=== PATIENT | female | born 1935 | race Caucasian/White ===

== ENCOUNTER → 2016-06-04 | Outpatient (CLI) | payer MEDICARE, OTHER | LOC: GMAB 12:40 | PROVIDERS: ATTEND Family Medicine | DX: I10 Essential (primary) hypertension (principal) ==

== ENCOUNTER → 2016-10-05 | Outpatient (CLI) | payer MEDICARE, OTHER ==
--- NOTE | 2016-10-05 15:49 | MAM ---
History: Well woman exam. Date of exam: 10/05/2016 Services provided: Bilateral full field digital screening mammography. CAD, the images were reviewed with R2 computer aided detection. FINDINGS: Glandular tissue is scattered glandular contour. Comparison with 2012 study. No dominant mass, architectural distortion or clustered microcalcification. IMPRESSION: Benign exam Recommendation: Routine annual mammography BIRAD CATEGORY: 2 BENIGN Electronically signed by: Yashira Cardenas MD 10/05/2016 3:48 PM CDT
== END | disposition home or self-care (01) ==
LOC: MAMMO 13:54
PROVIDERS: ATTEND Family Medicine
DX: Z12.31 Encounter for screening mammogram for malignant neoplasm of breast (principal)

== ENCOUNTER → 2017-03-04 | Outpatient (CLI) | payer MEDICARE, OTHER | END | disposition home or self-care (01) | LOC: GMAB 17:12 | PROVIDERS: ATTEND Family Medicine | DX: E53.8 Deficiency of other specified B group vitamins (principal); R53.82 Chronic fatigue, unspecified ==

== ENCOUNTER → 2017-06-16 | Outpatient (CLI) | payer MEDICARE, OTHER | LOC: GMAB 11:06 | PROVIDERS: ATTEND Family Medicine | DX: I10 Essential (primary) hypertension (principal); R30.0 Dysuria; M62.838 Other muscle spasm ==

== ENCOUNTER → 2018-02-25 | Outpatient (CLI) | payer MEDICARE, OTHER ==
--- NOTE | 2018-02-25 15:26 | US ---
US THYROID CLINICAL STATEMENT: E04.9. COMPARISON: None FINDINGS: Size right thyroid lobe: 3.7 x 1.4 x 1.7 cm Size left thyroid lobe: 3.4 x 1.2 x 1.1 cm Size isthmus: 0.2 cm Estimated total number of nodules greater than or equal to 1 cm: 2 Nodule 1: Size: 1.1 x 0.8 x 0.7 cm Location: Right Lower Composition: solid or almost completely solid: 2 points Echogenicity: isoechoic: 1 point Shape: wider than tall: 0 points Margins: ill-defined: 0 points Echogenic foci: none: 0 points ACR Total Points: 3; ACR TI-RADS risk category: TR3 - mildly suspicious nodule. Nodule 2: Size: 1.0 x 0.7 x 0.4 cm Location: Right Lower Composition: solid or almost completely solid: 2 points Echogenicity: hypoechoic: 2 points Shape: wider than tall: 0 points Margins: smooth: 0 points Echogenic foci: none: 0 points ACR Total Points: 4; ACR TI-RADS risk category: TR4 - moderately suspicious nodule. Nodule 3: Size: 1 x 0.5 x 0.3 cm Location: Left Mid Composition: solid or almost completely solid: 2 points Echogenicity: hypoechoic: 2 points Shape: wider than tall: 0 points Margins: smooth: 0 points Echogenic foci: none: 0 points ACR Total Points: 4; ACR TI-RADS risk category: TR4 - moderately suspicious nodule. The soft tissue around the thyroid gland shows no evidence of distinct solid or cystic mass. No large calcifications or parenchymal edema. Overlying skin is unremarkable. No abnormal vascularity. IMPRESSION: 1. Nodule 1: ACR TI-RADS 2017 Category 3. Recommend: No further follow-up. 2. Nodule 2: ACR TI-RADS 2017 Category 4. Recommend: Follow-up ultrasound in 1 year.. Please see ACR TI-RADS 2017 recommendations below.* 3. Nodule 3: ACR TI-RADS 2017 Category 4. Recommend: Follow-up ultrasound in 1 year. 4. Soft tissue around the thyroid gland is unremarkable. *ACR TI-RADS 2017 Recommendations: TR1: No FNA or follow up TR2: No FNA or follow up TR3: FNA if >/= 2.5 cm, follow up if 1.5 - 2.4 cm in 1, 3, and 5 years TR4: FNA if >/= 1.5 cm, follow up if 1.0 - 1.4 cm in 1, 2, 3, and 5 years TR5: FNA if >/= 1.0 cm, follow up if 0.5 - 0.9 cm every year for 5 years ACR TI-RADS recommends that no more than two nodules with the highest ACR TI-RADS total point should be biopsied and no more than four nodules should be followed. Electronically signed by: Avni Vargas MD 02/25/2018 3:25 PM CDT
== END ==
LOC: US 09:30
PROVIDERS: ATTEND Family Medicine
DX: E04.9 Nontoxic goiter, unspecified (principal)

== ENCOUNTER → 2018-06-27 | Outpatient (CLI) | payer MEDICARE, OTHER | LOC: GMAE 11:06 | PROVIDERS: ATTEND Family Medicine | DX: I10 Essential (primary) hypertension (principal) ==

== ENCOUNTER → 2019-01-09 | Outpatient (CLI) | payer MEDICARE, OTHER ==
--- NOTE | 2019-01-09 16:11 | MRI ---
EXAM DESCRIPTION: Lumbar Spine w/o Contrast CLINICAL HISTORY: 83 years Female, SPONDYLOSIS COMPARISON: Lumbar spine radiographs 05/12/2016. CT lumbar spine 02/11/2016. MRI lumbar spine 07/12/2015. TECHNIQUE: Multisequence, multiplanar images of the lumbar spine without intravenous contrast. FINDINGS: For the purpose of this report, the designated L5-S1 disc space will be referred to as axial T2 image 3. Vertebrae: Susceptibility artifact secondary to extensive posterior fusion from L3 and above into the lower thoracic spine. Within these limitations, no acute fracture acute compression deformity. Acute Modic type I degenerative endplate change at anterior L4-5. Modic type II degenerative endplate change at L3-L4 and L5-S1. Mild lumbar lordosis. Trace anterolisthesis of L4 on L5 secondary to facet hypertrophy. Spinal cord: Termination of the conus medullaris at T12-L1. Nerve roots of the cauda equina appear clumped along the posterior aspect of the thecal sac from the level of L2 vertebral body and below. Discs, facets, spinal canal, and neural foramina: Interbody fusion at T12-L1. Severe L1-L2 through L3-4 disc space narrowing. Disc desiccation of the lumbar spine. L1-L2: Mild endplate osteophytic ridging eccentric towards the right lateral recess. Severe facet arthropathy. Spinal canal is patent. Mild bilateral neural foraminal stenosis. L2-3: Mild endplate osteophytic ridging. Severe facet arthropathy. Mild spinal canal stenosis. Mild left but no right neural foraminal stenosis. L3-4: Mild disc bulge and endplate osteophytic ridging. Severe right greater than left facet arthropathy. Severe right greater than left facet arthropathy. Moderate spinal canal stenosis with AP narrowing to 7 mm. Mild bilateral neural foraminal stenosis. L4-5: Unroofing the posterior disc space and superimposed moderate disc bulge. Severe facet arthropathy. Severe right lateral recess stenosis which likely affect the transiting right L5 nerve root. Moderate spinal canal stenosis with AP narrowing to 7 mm. Severe right and moderate left neural foraminal stenosis. L5-S1: Small disc bulge and moderate endplate osteophytic ridging. Severe right greater than left facet arthropathy. Severe right lateral recess stenosis likely affecting the transiting right S1 nerve root. Moderate spinal canal stenosis with AP narrowing to 6 mm. Severe left greater than right neural foraminal stenosis. Paraspinous soft tissues: Paravertebral soft tissues unremarkable. IMPRESSION: 1. No acute fracture or acute compression deformity. 2. Extensive posterior fusion spanning L3 and above lower thoracic spine. 3. Grade 1 and listhesis of L4 relative L5 secondary to facet hypertrophy with acute Modic type I degenerative change. 4. Lumbar spondylosis with up to moderate spinal canal stenosis as above. 5. L4-5 severe right lateral recess stenosis which likely affect the transiting right L5 nerve root. 6. L5-S1 severe right lateral recess stenosis affecting the transiting right S1 nerve root. 7. Multilevel neural foraminal compromise, greatest and severe at right L4, left greater the right L5. 8. There is some the cauda equina at the level L2 and below the dependent along the posterior thecal sac. 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 This is similarly seen from 07/12/2015 and therefore chronic in nature. Electronically signed by: Johnny Polo MD 01/09/2019 4:10 PM CDT
== END ==
LOC: MRI 13:44
PROVIDERS: ATTEND Anesthesiology Pain Medicine
DX: M47.816 Spondylosis without myelopathy or radiculopathy, lumbar region (principal); M47.814 Spondylosis without myelopathy or radiculopathy, thoracic region; M48.061 Spinal stenosis, lumbar region without neurogenic claudication; M43.16 Spondylolisthesis, lumbar region; Z98.1 Arthrodesis status

== ENCOUNTER → 2019-01-13 | Outpatient (CLI) | payer MEDICARE, OTHER ==
--- NOTE | 2019-01-16 08:46 | MRI ---
EXAM DESCRIPTION: Thoracic Spine w/o Contrast CLINICAL HISTORY: SPONDYLOSIS. No thoracic spine hardware. Pain. COMPARISON: CT thoracic spine 02/11/2016. TECHNIQUE: Multisequence multiplanar MRI of thoracic spine was obtained without intravenous contrast. FINDINGS: Partially visualized posterior spinal fusion starting at T10 level extending to at least the L3 level). Susceptibility artifact from the hardware partially limits regional soft tissue evaluation. Interbody fusion at T12-L1 is noted. The alignment of the thoracic spine is intact without significant listhesis. Moderate multilevel thoracic spine degenerative changes with disc desiccation, associated intervertebral disc height loss is more pronounced within the mid thoracic spine (T6 levels). Bulky bridging osteophyte can be seen with changes of DISH (diffuse idiopathic skeletal hyperostosis). Small central disc bulge at T4-T5 causes mild effacement of the ventral cord without central canal stenosis. At T9-T10 posterior disc bulge (2-3 mm) with ligamentum flavum hypertrophy results in mild effacement of the cord and mild central canal stenosis. No significant central canal stenosis or neural foraminal narrowing at any thoracic level. The vertebral body heights are maintained without displaced fracture or dislocation. No suspicious osseous lesion. Normal caliber and signal intensity of the thoracic cord. No focal spinal cord lesion or edema. The soft tissues are unremarkable. IMPRESSION: 1. Lower thoracic/lumbar spinal hardware fixation (extending from the T10 levels inferiorly). 2. Moderate multilevel thoracic spine degenerative changes with DISH without high-grade central canal stenosis or neuroforaminal narrowing, similar compared to prior examination. 3. Mild central canal stenosis at T9-T10. 4. Normal caliber and signal intensity of the thoracic cord. Electronically signed by: Zain Mckoy DO 01/16/2019 8:44 AM CDT
== END ==
LOC: MRI 13:00
PROVIDERS: ATTEND Anesthesiology Pain Medicine
DX: M47.816 Spondylosis without myelopathy or radiculopathy, lumbar region (principal); M48.04 Spinal stenosis, thoracic region; M47.814 Spondylosis without myelopathy or radiculopathy, thoracic region; Z98.1 Arthrodesis status

== ENCOUNTER → 2019-03-20 | Outpatient (CLI) | payer MEDICARE, OTHER | LOC: GMAE 16:43 | PROVIDERS: ATTEND Family Medicine | DX: E53.8 Deficiency of other specified B group vitamins (principal); R53.83 Other fatigue; E83.51 Hypocalcemia; R35.0 Frequency of micturition ==

== ENCOUNTER → 2020-02-12 | Outpatient (CLI) | payer MEDICARE, OTHER ==
--- NOTE | 2020-02-12 11:46 | RAD ---
EXAM DESCRIPTION: Hand,Left 3 Views CLINICAL HISTORY: PAIN IN RIGHT AND LEFT HAND COMPARISON: None. TECHNIQUE: 3 views left FINDINGS: Diffuse osteopenia is observed. Distal interphalangeal joint arthritis is noted. Mild degenerative changes are observed in the metacarpal carpal articulation of the first digit. Mild metacarpal carpal arthritis is observed in the remainder of the digits. Calcification of the triangle fibrocartilage is observed. No fracturing is detected. IMPRESSION: Degenerative changes and osteopenia are observed. No fracturing is detected. Electronically signed by: Lucas Henao MD 02/12/2020 11:45 AM CDT
--- NOTE | 2020-02-12 11:49 | RAD ---
EXAM DESCRIPTION: Hand,Right 3 Views CLINICAL HISTORY: PAIN IN LEFT AND RIGHT HAND COMPARISON: 01 January 2012 TECHNIQUE: 3 views right FINDINGS: Distal interphalangeal joint arthritis is observed throughout the hand. The exam also reveals degenerative changes in the metatarsal phalangeal joints throughout the hand most pronounced in the first and second digits. Degenerative changes are also observed in the metacarpal carpal articulation of the first digit. Calcification of the triangular fibrocartilage is noted. No fracturing is detected. IMPRESSION: Degenerative changes are observed. No fracturing is detected. Electronically signed by: Lucas Henao MD 02/12/2020 11:47 AM CDT
== END ==
LOC: RAD 10:06
PROVIDERS: ATTEND Orthopaedic Surgery
DX: M19.041 Primary osteoarthritis, right hand (principal); M19.042 Primary osteoarthritis, left hand; M85.842 Other specified disorders of bone density and structure, left hand

== ENCOUNTER 2020-03-19 05:30 | Day surgery (SDC) | payer MEDICARE, OTHER ==
[2020-03-19] MEDS ORDERED: PROPOFOL 200 MG/20 ML VIAL IV ONE (05:31)
[2020-03-19] MEDS ORDERED: METOCLOPRAMIDE HCL INJ 10 MG/2 ML VIAL IV ONE (05:31)
[2020-03-19] MEDS ORDERED: DEXAMETHASONE INJ 10 MG/ML VIAL IV ONE (05:31)
[2020-03-19] MEDS ORDERED: LIDOCAINE 1% 10 ML VIAL INJ ONE ×2 (05:31→06:47)
[2020-03-19] MEDS ORDERED: SODIUM CHL 0.9% 100ML MINI-BAG 100 ML IVPB ONE (06:04)
[2020-03-19] MEDS ORDERED: LACTATED RINGERS 1,000 ML ONE (06:04)
[2020-03-19] MEDS ORDERED: ceFAZolin SODIUM 1 GM VIAL ONE (06:04)
[2020-03-19] MEDS ORDERED: BUPIVACAINE 0.25% INJ 30 ML VIAL INJ ONE (06:47)
[2020-03-19] MEDS ORDERED: LACTATED RINGERS 1,000 ML IVS ONE (06:50)
[2020-03-19] MEDS ORDERED: MIDAZOLAM INJ 2 MG/2 ML VIAL ONE (07:18)
[2020-03-19] MEDS: ceFAZolin SODIUM 1 GM VIAL ONE ×2 (07:32→07:49)
[2020-03-19] MEDS: VANCOMYCIN HCL INJ 1,000 MG VIAL IVPB ONE ×2 (07:33→07:49)
[2020-03-19 09:17] VITALS: BP 169/67; TEMP 97.2; O2SAT 96
--- NOTE | 2020-03-29 09:18 | OP ---
DATE OF PROCEDURE: 03/19/20 PREOPERATIVE DIAGNOSIS: 1. Right carpal tunnel syndrome. 2. Right fourth trigger finger. POSTOPERATIVE DIAGNOSIS: 1. Right carpal tunnel syndrome. 2. Right fourth trigger finger. PROCEDURE: 1. Right carpal tunnel release. 2. Right fourth digit trigger finger release. SURGEON: Sagar Fitzpatrick MD. [facility] RO[facility] ATTENDANT: Avni Weiner CST, SA-C. ANESTHESIA: Local with sedation. COMPLICATIONS: None. FINDINGS: 1. Thickening of the transverse carpal ligament. 2. Triggering at the A1 shari. INDICATION: Ms. Flannery has the issues with the above diagnoses. Because of the ongoing issues and failure of conservative measures, she has requested operative intervention. After discussing the risks, benefits and alternatives to that, the patient has given informed consent for the above procedures. PROCEDURE: The patient was brought to the Operating Room and placed in the supine position. Sedation was administered and local anesthetic was injected into the operative area under sterile conditions. After the injection of anesthetic, the arm was sterilely prepped and draped. A longitudinal incision was made directly overlying the transverse carpal ligament and blunt dissection was carried down to the ligament. The transverse carpal ligament was sharply transected along its length and a [place] elevator was used to ensure complete release of the ligament. Once release had been confirmed, the wound was thoroughly irrigated and the wound was closed with Nylon suture. Attention was then focused on the trigger finger. Local anesthetic was injected into the operative area. Following injection, the arm was sterilely prepped and draped. A transverse incision was made directly overlying the A1 shari of the triggering digit and blunt dissection was carried down to the shari while protecting the digital nerves. After identification of the shari, the shari was transected and a [place] elevator was passed both proximally and distally to ensure complete release. The finger was flexed and extended and there was no evidence of locking or clicking. The wound was thoroughly irrigated and closed with Nylon suture. Dressings were placed and the patient was taken to the Day Surgery Unit. POSTOPERATIVE PLAN: The patient has been encouraged to do range of motion of the digits and will followup with us in two days. #[id number] MTDD
== END 2020-03-19 08:55 | disposition home or self-care (01) ==
LOC: AMB 05:30
PROVIDERS: ATTEND Orthopaedic Surgery
DX: G56.01 Carpal tunnel syndrome, right upper limb (principal); M65.341 Trigger finger, right ring finger; I10 Essential (primary) hypertension; F32.9 Major depressive disorder, single episode, unspecified; Z88.8 Allergy status to other drugs, medicaments and biological substances; Z79.82 Long term (current) use of aspirin; Z79.899 Other long term (current) drug therapy
CPT/HCPCS: 01810; 26055; 36415; 64721; 80048; 80307; 81001; 85025; 87070; J0690; J1100; J2250; J2765; J3370; J3490; J7050; J7120

== ENCOUNTER 2020-04-08 05:18 | Day surgery (SDC) | payer MEDICARE, OTHER ==
[2020-04-08] MEDS ORDERED: DEXAMETHASONE INJ 10 MG/ML VIAL ONE (07:27)
[2020-04-08] MEDS ORDERED: LIDOCAINE 1% 10 ML VIAL INJ ONE (07:27)
[2020-04-08] MEDS ORDERED: BUPIVACAINE 0.5% 30 ML VIAL INJ ONE (07:27)
[2020-04-08] MEDS ORDERED: BETAMETHASONE ACETATE/BETAMETH 6 MG/ML VIAL IM ONE (07:29)
== END 2020-04-08 09:21 | disposition home or self-care (01) ==
LOC: AMB 05:18
PROVIDERS: ATTEND Family Medicine Sports Medicine
DX: G89.29 Other chronic pain (principal); M54.5 Low back pain; M46.1 Sacroiliitis, not elsewhere classified; E78.5 Hyperlipidemia, unspecified; I10 Essential (primary) hypertension; F41.1 Generalized anxiety disorder; G47.00 Insomnia, unspecified; Z90.710 Acquired absence of both cervix and uterus; Z88.8 Allergy status to other drugs, medicaments and biological substances; Z79.899 Other long term (current) drug therapy
CPT/HCPCS: 76000; G0260